=== PATIENT | male | born 1985 | race Hispanic/Latino ===

== ENCOUNTER 2020-02-13 09:03 | Emergency (ER) | payer OTHER ==
[~2020-02-13] VITALS: Ht 167.6 cm; Wt 106.6 kg
[2020-02-13] MEDS ORDERED: SODIUM CHLORIDE 0.9% 1000ML 1,000 ML IV STA (09:06)
[2020-02-13] MEDS ORDERED: PIPER-TAZ 3.375 GM 50 ML IV STA (09:24)
--- NOTE | 2020-02-13 09:24 | Emergency Department Note ---
History of Present Illnes History of Present Illness Chief Complaint: RLQ PAIN History of Present Illness This is a 35 year old male . Historian: Patient Arrival Mode: Car History limited by: condition of the patient (normal) Baseball Glove Stuffer Required: No Onset (how long ago): hour(s) (12) Location: rlq Quality: sharp Radiation: Reports non-radiation Severity: severe Onset quality: gradual Duration (how long): hour(s) (12) Timing of current episode: constant Progression: worsening Chronicity: new Context: Denies recent illness, Denies recent surgery, Denies recent immobilization, Denies recent travel, Denies trauma/injury, Denies new medications, Denies hx of DVT/PE, Denies non-compliance w/ medications Relieving factors: rest Exacerbating factors: movement Treatments prior to arrival: none Past Medical/Family History Physician Review I have reviewed the patient's past medical and family history. Any updates have been documented here. Past Medical History Recent Fever: No Clinical Suspicion of Infectio: No New/Unexplained Change in Ment: No Past Medical History: None Past Surgical History: None Social History Smoking Cessation: Current every day smoker Counseling Performed: No Alcohol Use: Occasional Any Illegal Drug Use: No Other Any Pre-Existing Lines (PICC,: No Review of Systems Review of Systems Constitutional: Reports no symptoms EENTM: Reports no symptoms Cardiovascular: Reports no symptoms Respiratory: Reports no symptoms Gastrointestinal: Reports as per HPI Genitourinary: Reports no symptoms Musculoskeletal: Reports no symptoms Integumentary: Reports no symptoms Neurological: Reports no symptoms Psychological: Reports no symptoms Endocrine: Reports no symptoms Hematological/Lymphatic: Reports no symptoms Physical Exam Related Data Allergies: Coded Allergies: No Known Allergies (Unverified , 02/13/20) Triage Vital Signs Vital Signs Date Time Temp Pulse Resp B/P (MAP) Pulse Ox O2 Delivery O2 Flow Rate FiO2 02/13/20 09:09 70 17 131/72 100 Room Air Vital signs reviewed: Yes Physical Exam CONSTITUTIONAL Constitutional: Present well-developed, Present well-nourished HENT HENT: Present normocephalic, Present atraumatic, Present oropharynx clear/mois t, Present nose normal HENT L/R: Present left ext ear normal, Present right ext ear normal EYES Eyes: Reports PERRL, Reports conjunctivae normal NECK Neck: Present ROM normal PULMONARY Pulmonary: Present effort normal, Present breath sounds normal CARDIOVASCULAR Cardiovascular: Present regular rhythm, Present heart sounds normal, Present capillary refill normal, Present normal rate GASTROINTESTINAL Abdominal: Present soft, Present bowel sounds normal, Present tender (rlq), Present guarding; Absent rebound, Absent hernia GENITOURINARY Genitourinary: Present exam deferred SKIN Skin: Present warm, Present dry MUSCULOSKELETAL Musculoskeletal: Present ROM normal NEUROLOGICAL Neurological: Present alert, Present oriented x 3, Present no gross motor or sensory deficits PSYCHOLOGICAL Psychological: Present mood/affect normal, Present judgement normal Results Laboratory Lab results reviewed: Yes Laboratory comments cbc/cmp normal Imaging Imaging results reviewed: Yes Impressions [place] [address] Patient Name: SWETHA CARTER JR MR #: [id number] : 1985 Age/Sex: 35/M Req #: [id number] Adm Physician: Ordered by: FRANK WILEY Report #: [id number] Location: ER Room/Bed: Procedure: [id number] CT/CT ABDOMEN/PELVIS W Exam Date: 02/13/20 Exam Time: 1015 REPORT STATUS: Signed CT of the abdomen and pelvis with contrast TECHNIQUE: CT of the abdomen and pelvis WITH intravenous contrast and WITHOUT oral contrast. Dose modulation, iterative reconstruction, and/or weight-based adjustment of the mA/kV was utilized to reduce the radiation dose to as low as reasonably achievable. IV CONTRAST: 100 mL of Isovue-370 ORAL CONTRAST: None RADIATION DOSE: Total DLP: 708 mGy*cm COMPLICATIONS: None INDICATION: ^ABD PAIN/ with IV CONTRAST ^20200213 ^1015 ^Y. COMPARISON: None. FINDINGS: LOWER THORAX: Unremarkable. HEPATOBILIARY: No focal hepatic lesions. Gallbladder is unremarkable. No biliary ductal dilatation. SPLEEN: No splenomegaly. PANCREAS: No focal masses or ductal dilatation. ADRENALS: No adrenal nodules. KIDNEYS/URETERS: No hydronephrosis, stones, or masses. PELVIC ORGANS/BLADDER: Unremarkable. PERITONEUM/RETROPERITONEUM: No free air or fluid. LYMPH NODES: No lymphadenopathy. VESSELS: Unremarkable. GI TRACT: Negative for obstruction. Normal appendix is noted. No surrounding inflammatory changes are identified. Stomach is decompressed limiting evaluation. A few nonspecific fluid-filled nondilated small bowel loops are identified in the midabdomen. BONES AND SOFT TISSUES: Negative for acute osseous abnormality. Soft tissues are unremarkable. IMPRESSION: 1. Negative for acute abdominopelvic process. Specifically the appendix is unremarkable. 2. There are a few fluid-filled small bowel loops in the left midabdomen, nonspecific but can be seen in patients with enteritis. Signed by: Theodora Braga MD on 02/13/2020 10:40 AM Dictated By: THEODORA BRAGA MD [id number] Transcribed By: HETAL on 02/13/20 1040 COPY TO: FRANK WILEY~ Assessment & Plan Medical Decision Making MDM appendicitis, eneteritis, uti Reassessment Reassessment time: 11:31 Reassessment BETTER Assessment & Plan Final Impression: (1) Enteritis Depart Disposition: HOME, SELF-CARE Last Vital Signs Date Time Temp Pulse Resp B/P (MAP) Pulse Ox O2 Delivery O2 Flow Rate FiO2 02/13/20 09:09 70 17 131/72 100 Room Air Home Meds Active Scripts Metronidazole (METRONIDAZOLE) 500 Mg Tablet, 500 MG PO Q8H, #30 TAB TAKE WITH JUICE AND FOOD Prov:FRANK WILEY 02/13/20 Ciprofloxacin Hcl (CIPRO) 500 Mg Tablet, 500 MG PO Q12H, #20 TAB Prov:FRANK WILEY 02/13/20 Prednisone (PREDNISONE) 20 Mg Tab, 60 MG PO DAILY, #15 TAB take all 3 20 mg pills at once Prov:FRANK WILEY 02/13/20 Ondansetron (ONDANSETRON ODT) 8 Mg Tab.rapdis, 4 MG PO Q4HR PRN for NAUSEA AND VOMITING, #20 TAB 1 Refill Prov:FRANK WILEY 02/13/20 Medications in the ED Sodium Chloride 1,000 ml @ 0 mls/hr Q0M STAT IV ; Start 02/13/20 at 09:06; Stop 02/13/20 at 09:09; Status DC FRANK WILEY Feb 13, 2020 09:24
[2020-02-13 09:29] LABS: BASOPHILS # (AUTO) 0.1 (0.0-0.1); BASOPHILS % 0.7 % (0.0-1.0); EOSINOPHILS # (AUTO) 0.1 (0.0-0.4); EOSINOPHILS % 0.9 % (0.0-6.0); HEMATOCRIT 45.2 % (38.2-49.6); LYMPHOCYTES # (AUTO) 2.1 (1.0-3.2); LYMPHOCYTES % 25.5 % (18.0-39.1); MEAN CORPUSCULAR HEMOGLOBIN 33.5 pg (28-32); MEAN CORPUSCULAR HGB CONC 35.4 g/dL (31-35); MEAN CORPUSCULAR VOLUME 94.6 fL (81-99); MONOCYTES # (AUTO) 0.6 (0.2-0.8); NEUTROPHILS # (AUTO) 5.3 (2.1-6.9); NEUTROPHILS % 65.7 % (38.7-80.0); PLATELET COUNT 302 x10e3/uL (140-360); RED BLOOD COUNT 4.78 x10e6/uL (4.3-5.7); RED CELL DISTRIBUTION WIDTH 12.5 % (11.7-14.4)
[2020-02-13 09:50] LABS: ALANINE AMINOTRANSFERASE 22 IU/L (0-55); ALBUMIN 4.8 g/dL (3.5-5.0); ALBUMIN/GLOBULIN RATIO 1.5 (0.8-2.0); ALKALINE PHOSPHATASE 93 IU/L (40-150); ANION GAP 14.4 mmol/L (8-16); BLOOD UREA NITROGEN 13 mg/dL (7-26); BUN/CREATININE RATIO 12 (6-25); CALCIUM 9.1 mg/dL (8.4-10.2); CARBON DIOXIDE 25 mmol/L (22-29); CHLORIDE 107 mmol/L (98-107); CREATININE, SERUM 1.07 mg/dL (0.72-1.25); EST GLOMERULAR FILTRATION RATE > 60 ML/MIN (60-); GLUCOSE 93 mg/dL (74-118); POTASSIUM 4.4 mmol/L (3.5-5.1); SODIUM 142 mmol/L (136-145)
[2020-02-13] MEDS ORDERED: IOPAMIDOL 370 MG/ML 200 ML INFUS..BTL INJ ONE (10:08)
[2020-02-13] MEDS ORDERED: SODIUM CHLORIDE 0.9% 50ML 50 ML ONE (10:08)
--- NOTE | 2020-02-13 10:43 | Diagnostic Imaging Report ---
CT of the abdomen and pelvis with contrast TECHNIQUE: CT of the abdomen and pelvis WITH intravenous contrast and WITHOUT oral contrast. Dose modulation, iterative reconstruction, and/or weight-based adjustment of the mA/kV was utilized to reduce the radiation dose to as low as reasonably achievable. IV CONTRAST: 100 mL of Isovue-370 ORAL CONTRAST: None RADIATION DOSE: Total DLP: 708 mGy*cm COMPLICATIONS: None INDICATION: ^ABD PAIN/ with IV CONTRAST ^20200213 ^1015 ^Y. COMPARISON: None. FINDINGS: LOWER THORAX: Unremarkable. HEPATOBILIARY: No focal hepatic lesions. Gallbladder is unremarkable. No biliary ductal dilatation. SPLEEN: No splenomegaly. PANCREAS: No focal masses or ductal dilatation. ADRENALS: No adrenal nodules. KIDNEYS/URETERS: No hydronephrosis, stones, or masses. PELVIC ORGANS/BLADDER: Unremarkable. PERITONEUM/RETROPERITONEUM: No free air or fluid. LYMPH NODES: No lymphadenopathy. VESSELS: Unremarkable. GI TRACT: Negative for obstruction. Normal appendix is noted. No surrounding inflammatory changes are identified. Stomach is decompressed limiting evaluation. A few nonspecific fluid-filled nondilated small bowel loops are identified in the midabdomen. BONES AND SOFT TISSUES: Negative for acute osseous abnormality. Soft tissues are unremarkable. IMPRESSION: 1. Negative for acute abdominopelvic process. Specifically the appendix is unremarkable. 2. There are a few fluid-filled small bowel loops in the left midabdomen, nonspecific but can be seen in patients with enteritis. Signed by: Pedro Storey MD on 02/13/2020 10:40 AM
[2020-02-13] MEDS ORDERED: KETOROLAC TROMETHAMINE 30 MG/ML VIAL IV STA (11:10)
[2020-02-13] MEDS ORDERED: METHYLPREDNISOLONE SOD SUCC 125 MG/2ML VIAL IV ONE (11:15)
[2020-02-13] MEDS ORDERED: METRONIDAZOLE500 MG PO (11:25)
[2020-02-13] MEDS ORDERED: CIPRO500 MG PO (11:25)
[2020-02-13] MEDS ORDERED: PREDNISONE20 MG PO (11:25)
[2020-02-13] MEDS ORDERED: ONDANSETRON ODT8 MG PO (11:25)
== END 2020-02-13 11:48 | disposition home or self-care (01) ==
LOC: ER 09:10
DX: K52.9 Noninfective gastroenteritis and colitis, unspecified (principal); F17.210 Nicotine dependence, cigarettes, uncomplicated
CPT/HCPCS: 36415; 74177; 80053; 85025; 99284; J1885; J2543; J2930; J7030; Q9967